=== PATIENT | female | born 1990 | race Caucasian/White ===

== ENCOUNTER 2018-10-18 17:02 | Emergency (ER) | payer OTHER ==
[~2018-10-18] VITALS: Ht 154.9 cm; Wt 79.8 kg
[2018-10-18] MEDS ORDERED: SODIUM CHLORIDE 0.9% 1000ML 1,000 ML IV STA (18:00)
[2018-10-18] MEDS ORDERED: CEFTRIAXONE SOD 1 GM/NS 50 ML 50 ML IV ONE (18:00)
[2018-10-18] MEDS ORDERED: ONDANSETRON HCL INJ 2MG/ML 2ML 2 MG/ML VIAL IV ONE (18:00)
[2018-10-18] MEDS ORDERED: KETOROLAC TROMETHAMINE 30 MG/ML VIAL IV ONE (18:00)
[2018-10-18 18:52] LABS: BASOPHILS # (AUTO) 0.1 (0.0-0.1); BASOPHILS % 0.4 % (0.0-1.0); EOSINOPHILS % 0.3 % (0.0-6.0); HEMATOCRIT 43.2 % (34.2-44.1); HEMOGLOBIN 14.2 g/dL (12.0-16.0); LYMPHOCYTES # (AUTO) 3.3 (1.0-3.2); LYMPHOCYTES % 23.1 % (18.0-39.1); MEAN CORPUSCULAR HEMOGLOBIN 29.4 pg (28-32); MEAN CORPUSCULAR HGB CONC 32.9 g/dL (31-35); MEAN CORPUSCULAR VOLUME 89.4 fL (81-99); MONOCYTES % 6.6 % (4.4-11.3); NEUTROPHILS % 69.3 % (38.7-80.0); PLATELET COUNT 323 x10e3/uL (140-360); RED BLOOD COUNT 4.83 x10e6/uL (3.6-5.1); RED CELL DISTRIBUTION WIDTH 12.1 % (11.7-14.4)
[2018-10-18 18:58] LABS: PREGNANCY TEST, URINE NEGATIVE (NEGATIVE)
[2018-10-18 19:06] LABS: CLARITY,URINE CLEAR (CLEAR); COLOR,URINE YELLOW (YELLOW); LEUKOCYTE ESTERASE ,URINE NEGATIVE (NEGATIVE); NITRITE,URINE NEGATIVE (NEGATIVE)
[2018-10-18 19:07] LABS: BILIRUBIN,URINE NEGATIVE (NEGATIVE); EPITHELIAL CELLS,URINE RARE /LPF; KETONES,URINE NEGATIVE (NEGATIVE); PROTEIN,URINE DIPSTICK NEGATIVE (NEGATIVE); URINE UROBILINOGEN 0.2 mg/dL (0.2 - 1)
[2018-10-18 19:15] LABS: ALANINE AMINOTRANSFERASE 7 IU/L (0-55); ALBUMIN 3.7 g/dL (3.5-5.0); ALBUMIN/GLOBULIN RATIO 0.9 (0.8-2.0); ALKALINE PHOSPHATASE 68 IU/L (40-150); ANION GAP 12.7 mmol/L (8-16); BLOOD UREA NITROGEN 11 mg/dL (7-26); BUN/CREATININE RATIO 12 (6-25); CALCIUM 9.6 mg/dL (8.4-10.2); CARBON DIOXIDE 23 mmol/L (22-29); CHLORIDE 103 mmol/L (98-107); CREATININE, SERUM 0.91 mg/dL (0.57-1.11); EST GLOMERULAR FILTRATION RATE > 60 ML/MIN (60-); GLUCOSE 94 mg/dL (74-118); POTASSIUM 3.7 mmol/L (3.5-5.1); SODIUM 135 mmol/L (136-145)
--- NOTE | 2018-10-18 20:21 | Diagnostic Imaging Report ---
CT Abdomen and Pelvis without contrast INDICATION: Increasing urination, left flank pain and burning TECHNIQUE: Thin collimation axial images obtained from the diaphragm to the level of the pubic symphysis without nonionic intravenous contrast. Dose reduction techniques used: Automated exposure control, adjustment of the mAs and/or kVp according to patient size, standardized low-dose protocol, and/or iterative reconstruction technique. RADIATION DOSE: Total DLP: 561.1 mGy*cm Estimated effective dose: (DLP x 0.015 x size factor) mSv CTDIvol has been reviewed. It is below the limits set by the Radiation Protocol Committee (RPC). COMPARISON: None. ABDOMEN FINDINGS: Lung Bases: Clear. The visualized portion of the mediastinum is normal. Liver: Normal in attenuation without mass. Gallbladder: Present and appears normal. No ductal dilatation. Pancreas: Normal attenuation without mass. Spleen: Normal size without mass. Adrenal Glands: No evidence for mass. Kidneys: Right: No renal calculus. No cortical mass or hydronephrosis. No perinephric inflammation Left: No renal calculus. No cortical mass or hydronephrosis. No perinephric inflammation Lymph Nodes: No enlarged abdominal or periaortic lymph nodes. Aorta: Normal in diameter. PELVIS FINDINGS: Bowel: Stomach: Distended with water and high density foci either food or medication. Small Bowel: Normal in caliber with normal wall thickness. Large Bowel: Moderate burden of stool in the right colon and transverse colon. No dilatation. No pericolonic inflammation. Appendix: Normal. Bladder: Under distended but otherwise normal. Ureters: No dilatation or calculus. The uterus is present and normal in morphology. No adnexal mass. Peritoneum/retroperitoneum: No free fluid or fluid collection. Bones: Unremarkable for age. IMPRESSION: 1. No evidence of renal calculus or obstructive uropathy. No CT findings on this unenhanced examination to suggest pyelonephritis. 2. Moderate burden of stool. No bowel obstruction or inflammation. Normal appendix. Signed by: Dr. Jovany Neal MD on 10/18/2018 8:18 PM
== END 2018-10-18 20:46 | disposition home or self-care (01) ==
LOC: ER 17:02
DX: R10.9 Unspecified abdominal pain (principal); Z88.5 Allergy status to narcotic agent
CPT/HCPCS: 36415; 74176; 80053; 81001; 81025; 85025; 87086; 99284; J0696; J1885; J2405; J7030